=== PATIENT | female | born 1985 | race Caucasian/White ===

== ENCOUNTER 2019-01-20 15:21 | Emergency (ER) | payer OTHER ==
[2019-01-20 15:27] VITALS: BP 114/55; PULSE 90; RESP 18; TEMP 98.1
[2019-01-20] MEDS ORDERED: PHENAZOPYRIDINE 200 MG TAB PO STA (15:36)
--- NOTE | 2019-01-20 15:39 | ED ---
Abdominal Pain HPI - General Chief Complaint: Abdominal Pain Stated Complaint: Poss UTI Time Seen by Provider: 01/20/19 15:28 Source: patient Mode of arrival: ambulatory Limitations: no limitations - History of Present Illness Initial Comments: 33-year-old female patient presents to the emergency department today for evaluation for possible urinary tract infection. Patient states for the last week she's been experiencing urinary frequency, urinary urgency, and for the last 2 days dysuria. Patient states she is also experiencing some low back pain today. She denies any fever or chills. Denies nausea or vomiting. Denies any abnormal vaginal bleeding or discharge. Patient denies history of urinary tract infection. Patient denies any recent rash, shortness breath, chest pain, diarrhea, constipation, back pain, numbness, tingling, dizziness, weakness, headache, visual changes, or any other complaints. - Related Data Previous Rx's Medication Instructions Recorded Hydrocodone/Acetaminophen [[place] 1 tab PO Q6HR PRN #20 tab 04/09/15 5-325] Ibuprofen [Motrin] 600 mg PO Q8HR PRN #20 tab 04/09/15 Ondansetron Odt [Zofran Odt] 4 mg PO Q8HR PRN #10 tab 04/09/15 Tamsulosin [Flomax] 0.4 mg PO DAILY #7 cap 04/09/15 Cephalexin [Keflex] 500 mg PO Q6HR #40 cap 01/20/19 Fluconazole [Diflucan] 150 mg PO ONCE #2 tab 01/20/19 Phenazopyridine [Pyridium] 200 mg PO TID #18 tablet 01/20/19 Allergies Allergy/AdvReac Type Severity Reaction Status Date / Time No Known Allergies Allergy Verified 01/20/19 15:27 Review of Systems ROS Statement: Those systems with pertinent positive or pertinent negative responses have been documented in the HPI. ROS Other: All systems not noted in ROS Statement are negative. Past Medical History Past Medical History: No Reported History Additional Past Medical History / Comment(s): kidney stones History of Any Multi-Drug Resistant Organisms: None Reported Past Surgical History: No Surgical Hx Reported Past Psychological History: No Psychological Hx Reported Smoking Status: Never smoker Past Alcohol Use History: None Reported Past Drug Use History: None Reported General Exam Limitations: no limitations General appearance: alert, in no apparent distress, other (Physical well- developed, well-nourished adult female patient in no acute distress. Vital signs upon presentation are temperature 98.1F, pulse 90, respirations 18, blood pressure 114/55, pulse ox 99% on room air.) Eye exam: Present: normal appearance, PERRL, EOMI. Absent: scleral icterus, conjunctival injection, periorbital swelling ENT exam: Present: normal exam, normal oropharynx, mucous membranes moist Respiratory exam: Present: normal lung sounds bilaterally. Absent: respiratory distress, wheezes, rales, rhonchi, stridor Cardiovascular Exam: Present: regular rate, normal rhythm, normal heart sounds. Absent: systolic murmur, diastolic murmur, rubs, gallop, clicks GI/Abdominal exam: Present: soft, normal bowel sounds. Absent: distended, tenderness, guarding, rebound, rigid Back exam: Present: normal inspection. Absent: CVA tenderness (R), CVA tenderness (L) Neurological exam: Present: alert, oriented X3, CN II-XII intact Psychiatric exam: Present: normal affect, normal mood Skin exam: Present: warm, dry, intact, normal color. Absent: rash Course Vital Signs 01/20/19 15:25 Temperature 98.1 F Pulse Rate 90 Respiratory 18 Rate Blood Pressure 114/55 O2 Sat by Pulse 99 Oximetry Medical Decision Making - Medical Decision Making 33-year-old female patient presents to the emergency department today for evaluation of low back pain, dysuria, urinary frequency, and urinary urgency. Urinalysis was performed, shows evidence for urinary tract infection. We'll start Keflex and give pyridium She did request a prescription for Diflucan. S he'll be discharged to follow-up with her primary care physician for recheck in 1-2 days. Return parameters were discussed in detail. She verbalizes understanding and agrees this plan. - Lab Data Lab Results 01/20/19 Range/Units 15:45 Urine Color Yellow Urine Appearance Cloudy H (Clear) Urine pH 5.5 (5.0-8.0) Ur Specific [place] 1.022 (1.001-1.035) Urine Protein 1+ H (Negative) Urine Glucose (UA) Negative (Negative) Urine Ketones Negative (Negative) Urine Blood Small H (Negative) Urine Nitrite Positive H (Negative) Urine Bilirubin Negative (Negative) Urine Urobilinogen <2.0 (<2.0) mg/dL Ur Leukocyte Esterase Large H (Negative) Urine WBC >182 H (0-5) /hpf Urine WBC Clumps Many H (None) /hpf Ur Squamous Epith Cells 5 H (0-4) /hpf Urine Bacteria Occasional H (None) /hpf Urine Mucus Rare H (None) /hpf Disposition Clinical Impression: Urinary tract infection Disposition: HOME SELF-CARE Condition: Good Instructions (If sedation given, give patient instructions): Urinary Tract Infection in Women (ED) Additional Instructions: Increase fluids. Complete antibiotic prescription in full. Take other medications as directed. Follow-up with your primary care physician for recheck in 1-2 days. Return to the emergency department immediately for any new, worsening, or concerning symptoms. Prescriptions: Fluconazole [Diflucan] 150 mg PO ONCE #2 tab Cephalexin [Keflex] 500 mg PO Q6HR #40 cap Phenazopyridine [Pyridium] 200 mg PO TID #18 tablet Is patient prescribed a controlled substance at d/c from ED?: No Referrals: None,Stated [Primary Care Provider] - 1-2 days Time of Disposition: 16:42
[2019-01-20 16:14] LABS: Appearance,Urine Cloudy (Clear); Bacteria,Urine Occasional /hpf; Bilirubin,Urine Negative (Negative); Blood,Urine Small (Negative); Color,Urine Yellow; Glucose,Urine (UA) Negative (Negative); Ketones,Urine Negative (Negative); Leukocyte Esterase,Urine Large (Negative); Mucus,Urine Rare /hpf; Nitrite,Urine Positive (Negative); PH, Urine 5.5 (5.0-8.0); Protein,Urine 1+ (Negative); Specific Gravity,Urine 1.022 (1.001-1.035); Squamous Epithelial Cell,Urine 5 /hpf (0-4); Urobilinogen,Urine <2.0 mg/dL (<2.0)
[2019-01-20] MEDS ORDERED: CEPHALEXIN 500MG STARTER PACK 4 CAP BTL PO STA (16:23)
== END 2019-01-20 16:50 | disposition home or self-care (01) ==
LOC: EC 15:21
DX: N39.0 Urinary tract infection, site not specified (principal); Z87.442 Personal history of urinary calculi
CPT/HCPCS: 81001; 87077; 87086; 87186; 99284

== ENCOUNTER 2019-01-30 11:03 | Emergency (ER) | payer SELFPAY ==
[2019-01-30 12:02] LABS: Appearance,Urine Clear (Clear); Bacteria,Urine Rare /hpf; Bilirubin,Urine Negative (Negative); Blood,Urine Moderate (Negative); Color,Urine Yellow; Glucose,Urine (UA) Negative (Negative); Ketones,Urine Negative (Negative); Leukocyte Esterase,Urine Large (Negative); Mucus,Urine Rare /hpf; Nitrite,Urine Negative (Negative); PH, Urine 5.5 (5.0-8.0); Protein,Urine Negative (Negative); RBC,Urine 59 /hpf (0-5); Specific Gravity,Urine 1.015 (1.001-1.035); Squamous Epithelial Cell,Urine 5 /hpf (0-4); Urobilinogen,Urine <2.0 mg/dL (<2.0); WBC,Urine 22 /hpf (0-5)
[2019-01-30] MEDS ORDERED: SODIUM CHLORIDE 0.9% 1,000 ML IV STA (12:04)
[2019-01-30] MEDS ORDERED: KETOROLAC 30 MG/ML 1 ML VIAL IVP STA (12:04)
[2019-01-30 12:45] LABS: Basophils % (A) 0 %; Eosinophils # (A) 0.3 k/uL (0-0.7); Eosinophils % (A) 4 %; HCT 35.8 % (34.0-46.0); HGB 12.2 gm/dL (11.4-16.0); Lymphocytes # (A) 2.3 k/uL (1.0-4.8); Lymphocytes % (A) 29 %; MCH 31.6 pg (25.0-35.0); MCHC 34.1 g/dL (31.0-37.0); MCV 92.6 fL (80.0-100.0); Mean Platelet Volume 6.1; Monocytes # (A) 0.4 k/uL (0-1.0); Monocytes % (A) 5 %; Neutrophils # (A) 4.8 k/uL (1.3-7.7); Neutrophils % (A) 60 %; Platelet Count 265 k/uL (150-450); RBC 3.87 m/uL (3.80-5.40); RDW 12.1 % (11.5-15.5)
[2019-01-30 12:51] LABS: ALT 27 U/L (9-52); AST 16 U/L (14-36); African American GFR (CKD) >90 (>60 ml/min/1.73 sqM); Alkaline Phosphatase 41 U/L (38-126); Amylase 58 U/L (30-110); Anion Gap 9 mmol/L; Blood Urea Nitrogen 14 mg/dL (7-17); Calcium 9.2 mg/dL (8.4-10.2); Carbon Dioxide 26 mmol/L (22-30); Chloride 107 mmol/L (98-107); Glucose 103 mg/dL (74-99); Potassium 4.2 mmol/L (3.5-5.1); Sodium 142 mmol/L (137-145); Total Bilirubin 0.4 mg/dL (0.2-1.3); Total Protein 6.9 g/dL (6.3-8.2)
--- NOTE | 2019-01-30 13:26 | CT ---
EXAMINATION TYPE: CT abdomen pelvis wo con DATE OF EXAM: 01/30/2019 COMPARISON: Previous study dated 02/22/2015. HISTORY: Rt flank pain CT DLP: 877.4 mGycm Automated exposure control for dose reduction was used. FINDINGS: Visualized portions of the lungs are clear. There is no pleural or pericardial fluid. The h eart is not enlarged. Within the abdomen, the liver is mildly prominent measuring 19 cm. The spleen and gallbladder are nor mal. Both adrenal glands are normal. Left kidney normal. There is moderate right-sided hydronephrosis and hydroureter to the level of the midpelvis where ther e is a 5.3 mm calculus. There is an IUCD within the uterus. The ovaries are unremarkable. There is no significant diverticular change and there is no radiographic evidence of diverticulitis. The appendix is normal. Small bowel loops are normal. There is no free fluid and no free air. IMPRESSION: 1. RIGHT-SIDED HYDRONEPHROSIS AND HYDROURETER WITH 5.3 MM CALCULUS JUST PROXIMAL TO THE UVJ. 2. MILD HEPATOMEGALY.
[2019-01-30] MEDS ORDERED: HYDROmorphone 0.5 MG/0.5 ML SYRINGE IVP STA (14:12)
[2019-01-30] MEDS ORDERED: ACET/COD 300 MG/30 MG STARTER PACK 6 TAB BTL PO STA (14:12)
--- NOTE | 2019-01-30 14:13 | ED ---
General Adult HPI - General Chief complaint: Back Pain/Injury Stated complaint: lower back pain Time Seen by Provider: 01/30/19 11:21 Source: patient, RN notes reviewed Mode of arrival: ambulatory Limitations: no limitations - History of Present Illness Initial comments: 33-year-old female with a past medical history of kidney stones presents to the emergency department for right low back pain. Patient states that about a week ago she was diagnosed with a urinary tract infection. States that she started antibiotics and the burning and dysuria has resolved. However she still is a nagging pain at a 4 out of 10 in the right side of her low back. No nausea vomiting. No fevers. Patient is tolerating oral intake.Patient has no other complaints at this time including shortness of breath, chest pain, abdominal pain, nausea or vomiting, headache, or visual changes. - Related Data Previous Rx's Medication Instructions Recorded Hydrocodone/Acetaminophen [[place] 1 tab PO Q6HR PRN #20 tab 04/09/15 5-325] Ibuprofen [Motrin] 600 mg PO Q8HR PRN #20 tab 04/09/15 Ondansetron Odt [Zofran Odt] 4 mg PO Q8HR PRN #10 tab 04/09/15 Tamsulosin [Flomax] 0.4 mg PO DAILY #7 cap 04/09/15 Cephalexin [Keflex] 500 mg PO Q6HR #40 cap 01/20/19 Fluconazole [Diflucan] 150 mg PO ONCE #2 tab 01/20/19 Phenazopyridine [Pyridium] 200 mg PO TID #18 tablet 01/20/19 Ibuprofen [Motrin] 600 mg PO Q8HR PRN #20 tab 01/30/19 Tamsulosin [Flomax] 0.4 mg PO DAILY #14 cap 01/30/19 Allergies Allergy/AdvReac Type Severity Reaction Status Date / Time No Known Allergies Allergy Verified 01/30/19 11:19 Review of Systems ROS Statement: Those systems with pertinent positive or pertinent negative responses have been documented in the HPI. ROS Other: All systems not noted in ROS Statement are negative. Past Medical History Past Medical History: No Reported History Additional Past Medical History / Comment(s): kidney stones History of Any Multi-Drug Resistant Organisms: None Reported Past Surgical History: No Surgical Hx Reported Past Psychological History: No Psychological Hx Reported Smoking Status: Never smoker Past Alcohol Use History: Occasional Past Drug Use History: None Reported General Exam Limitations: no limitations General appearance: alert, in no apparent distress Head exam: Present: atraumatic, normocephalic, normal inspection Eye exam: Present: normal appearance, PERRL, EOMI. Absent: scleral icterus, conjunctival injection, periorbital swelling ENT exam: Present: normal exam, mucous membranes moist Neck exam: Present: normal inspection, full ROM. Absent: tenderness, meningismus, lymphadenopathy Respiratory exam: Present: normal lung sounds bilaterally. Absent: respiratory distress, wheezes, rales, rhonchi, stridor Cardiovascular Exam: Present: regular rate, normal rhythm, normal heart sounds. Absent: systolic murmur, diastolic murmur, rubs, gallop, clicks GI/Abdominal exam: Present: soft, normal bowel sounds. Absent: distended, tenderness, guarding, rebound, rigid Back exam: Absent: CVA tenderness (R), CVA tenderness (L) Course Vital Signs 01/30/19 01/30/19 11:15 12:23 Temperature 98.0 F 98.7 F Pulse Rate 73 66 Respiratory 16 16 Rate Blood Pressure 118/66 123/74 O2 Sat by Pulse 99 100 Oximetry Medical Decision Making - Medical Decision Making HPI physical exam as documented. Vitals are stable. Patient is afebrile. Urinalysis did show 22 white blood cells with 59 red blood cells. Culture was reordered. CT abdomen and pelvis shows a right-sided hydronephrosis and hydroureter with a 5.3 mm calculus just proximal to the UVJ. This is likely why patient is still having right low back pain. UTI has improved the patient will continue her Keflex as she has a few days left. Previous culture was sensitive to Keflex. Discussed with patient that this may not pass on its own and she should follow up with urology by calling on Thursday for an appointment. Patient will be started on Flomax as well. She is nontoxic and well-appearing.I discu ssed this case with attending Dr. Hurtado who agrees with this assessment and treatment plan. - Lab Data Result diagrams: 01/30/19 12:22 01/30/19 12:22 Lab Results 01/30/19 01/30/19 01/30/19 Range/Units 11:30 11:30 12:22 WBC (3.8-10.6) k/uL RBC (3.80-5.40) m/uL Hgb (11.4-16.0) gm/dL Hct (34.0-46.0) % MCV (80.0-100.0) fL MCH (25.0-35.0) pg MCHC (31.0-37.0) g/dL RDW (11.5-15.5) % Plt Count (150-450) k/uL Neutrophils % % Lymphocytes % % Monocytes % % Eosinophils % % Basophils % % Neutrophils # (1.3-7.7) k/uL Lymphocytes # (1.0-4.8) k/uL Monocytes # (0-1.0) k/uL Eosinophils # (0-0.7) k/uL Basophils # (0-0.2) k/uL Sodium 142 (137-145) mmol/L Potassium 4.2 (3.5-5.1) mmol/L Chloride 107 (98-107) mmol/L Carbon Dioxide 26 (22-30) mmol/L Anion Gap 9 mmol/L BUN 14 (7-17) mg/dL Creatinine 0.77 (0.52-1.04) mg/dL Est GFR (CKD-EPI)AfAm >90 (>60 ml/min/1.73 sqM) Est GFR (CKD-EPI)NonAf >90 (>60 ml/min/1.73 sqM) Glucose 103 H (74-99) mg/dL Calcium 9.2 (8.4-10.2) mg/dL Total Bilirubin 0.4 (0.2-1.3) mg/dL AST 16 (14-36) U/L ALT 27 (9-52) U/L Alkaline Phosphatase 41 (38-126) U/L Total Protein 6.9 (6.3-8.2) g/dL Albumin 4.0 (3.5-5.0) g/dL Amylase 58 (30-110) U/L Lipase 136 (23-300) U/L Urine Color Yellow Urine Appearance Clear (Clear) Urine pH 5.5 (5.0-8.0) Ur Specific [place] 1.015 (1.001-1.035) Urine Protein Negative (Negative) Urine Glucose (UA) Negative (Negative) Urine Ketones Negative (Negative) Urine Blood Moderate H (Negative) Urine Nitrite Negative (Negative) Urine Bilirubin Negative (Negative) Urine Urobilinogen <2.0 (<2.0) mg/dL Ur Leukocyte Esterase Large H (Negative) Urine RBC 59 H (0-5) /hpf Urine WBC 22 H (0-5) /hpf Ur Squamous Epith Cells 5 H (0-4) /hpf Urine Bacteria Rare H (None) /hpf Urine Mucus Rare H (None) /hpf Urine HCG, Qual Not Detected (Not Detectd) 01/30/19 Range/Units 12:22 WBC 8.0 (3.8-10.6) k/uL RBC 3.87 (3.80-5.40) m/uL Hgb 12.2 (11.4-16.0) gm/dL Hct 35.8 (34.0-46.0) % MCV 92.6 (80.0-100.0) fL MCH 31.6 (25.0-35.0) pg MCHC 34.1 (31.0-37.0) g/dL RDW 12.1 (11.5-15.5) % Plt Count 265 (150-450) k/uL Neutrophils % 60 % Lymphocytes % 29 % Monocytes % 5 % Eosinophils % 4 % Basophils % 0 % Neutrophils # 4.8 (1.3-7.7) k/uL Lymphocytes # 2.3 (1.0-4.8) k/uL Monocytes # 0.4 (0-1.0) k/uL Eosinophils # 0.3 (0-0.7) k/uL Basophils # 0.0 (0-0.2) k/uL Sodium (137-145) mmol/L Potassium (3.5-5.1) mmol/L Chloride (98-107) mmol/L Carbon Dioxide (22-30) mmol/L Anion Gap mmol/L BUN (7-17) mg/dL Creatinine (0.52-1.04) mg/dL Est GFR (CKD-EPI)AfAm (>60 ml/min/1.73 sqM) Est GFR (CKD-EPI)NonAf (>60 ml/min/1.73 sqM) Glucose (74-99) mg/dL Calcium (8.4-10.2) mg/dL Total Bilirubin (0.2-1.3) mg/dL AST (14-36) U/L ALT (9-52) U/L Alkaline Phosphatase (38-126) U/L Total Protein (6.3-8.2) g/dL Albumin (3.5-5.0) g/dL Amylase (30-110) U/L Lipase (23-300) U/L Urine Color Urine Appearance (Clear) Urine pH (5.0-8.0) Ur Specific [place] (1.001-1.035) Urine Protein (Negative) Urine Glucose (UA) (Negative) Urine Ketones (Negative) Urine Blood (Negative) Urine Nitrite (Negative) Urine Bilirubin (Negative) Urine Urobilinogen (<2.0) mg/dL Ur Leukocyte Esterase (Negative) Urine RBC (0-5) /hpf Urine WBC (0-5) /hpf Ur Squamous Epith Cells (0-4) /hpf Urine Bacteria (None) /hpf Urine Mucus (None) /hpf Urine HCG, Qual (Not Detectd) Disposition Clinical Impression: Urinary tract infection, Ureterolithiasis Disposition: HOME SELF-CARE Condition: Good Instructions (If sedation given, give patient instructions): Kidney Stones (ED), Urinary Tract Infection in Women (ED) Additional Instructions: Please continue to take Keflex. Take Flomax daily. This was prescribed to fredi pulido on . Take Motrin for pain. If pain is severe take Tylenol 3. Follow up with urology by calling tomorrow for an appointment. Return to the emergency department if you have any worsening symptoms or fevers. Prescriptions: Tamsulosin [Flomax] 0.4 mg PO DAILY #14 cap Ibuprofen [Motrin] 600 mg PO Q8HR PRN #20 tab PRN Reason: Pain Is patient prescribed a controlled substance at d/c from ED?: No Referrals: Austin Flores MD [Primary Care Provider] - 1-2 days Ladarius Bryant MD [STAFF PHYSICIAN] - 1-2 days Time of Disposition: 14:10
[2019-01-30 14:28] VITALS: BP 130/66; PULSE 71; RESP 18; TEMP 97.2
== END 2019-01-30 14:27 | disposition home or self-care (01) ==
LOC: EC 11:03
DX: N13.6 Pyonephrosis (principal); N20.1 Calculus of ureter
CPT/HCPCS: 36415; 80053; 82150; 83690; 85025; 81001; 81025; 87086; 74176; 99284; 96374; 96375; 96361; J1885; J1170

== ENCOUNTER 2019-02-06 11:17 | Inpatient (IN) | payer OTHER ==
[2019-02-06] MEDS ORDERED: SODIUM CHLORIDE 0.9% 2,000 ML IV STA (11:42)
--- NOTE | 2019-02-06 11:48 | ED ---
Nausea/Vomiting/Diarrhea HPI - General Chief complaint: Nausea/Vomiting/Diarrhea Stated complaint: Kidney Infection Time Seen by Provider: 02/06/19 11:30 Source: patient, RN notes reviewed Mode of arrival: ambulatory Limitations: no limitations - History of Present Illness Initial comments: 33-year-old female presents emergency Department chief complaint of fever, chills, back pain. Patient states that she seen here approximately 3 weeks ago for UTI was treated states that symptoms improved but the pain never went away and she presented again was found to have a 5.3 mm UVJ stone on the right. Patient states that she does not believe she is passing she states that she does have a history kidney stones. Patient states over the last few days she's had worsening symptoms in which she's had back pain she's had either shaking chills or hot flashes. She does admit to some ongoing nausea vomiting but states that those symptoms have improved currently. She states her urine is odorous and cloudy at this time. Patient denies any chest pain or shortness breath patient states that really makes the pain feel better or worse. - Related Data Previous Rx's Medication Instructions Recorded Hydrocodone/Acetaminophen [[place] 1 tab PO Q6HR PRN #20 tab 04/09/15 5-325] Ibuprofen [Motrin] 600 mg PO Q8HR PRN #20 tab 04/09/15 Ondansetron Odt [Zofran Odt] 4 mg PO Q8HR PRN #10 tab 04/09/15 Tamsulosin [Flomax] 0.4 mg PO DAILY #7 cap 04/09/15 Cephalexin [Keflex] 500 mg PO Q6HR #40 cap 01/20/19 Fluconazole [Diflucan] 150 mg PO ONCE #2 tab 01/20/19 Phenazopyridine [Pyridium] 200 mg PO TID #18 tablet 01/20/19 Ibuprofen [Motrin] 600 mg PO Q8HR PRN #20 tab 01/30/19 Tamsulosin [Flomax] 0.4 mg PO DAILY #14 cap 01/30/19 Allergies Allergy/AdvReac Type Severity Reaction Status Date / Time No Known Allergies Allergy Verified 02/06/19 11:22 Review of Systems ROS Statement: Those systems with pertinent positive or pertinent negative responses have been documented in the HPI. ROS Other: All systems not noted in ROS Statement are negative. Past Medical History Past Medical History: No Reported History Additional Past Medical History / Comment(s): kidney stones, uti History of Any Multi-Drug Resistant Organisms: None Reported Past Surgical History: No Surgical Hx Reported Past Psychological History: No Psychological Hx Reported Smoking Status: Never smoker Past Alcohol Use History: Occasional Past Drug Use History: None Reported General Exam Limitations: no limitations General appearance: alert, in no apparent distress Head exam: Present: atraumatic, normocephalic, normal inspection Eye exam: Present: normal appearance, PERRL, EOMI. Absent: scleral icterus, conjunctival injection, periorbital swelling Neck exam: Present: normal inspection, full ROM. Absent: tenderness, meningismus, lymphadenopathy Respiratory exam: Present: normal lung sounds bilaterally. Absent: respiratory distress, wheezes, rales, rhonchi, stridor Cardiovascular Exam: Present: regular rate, normal rhythm, normal heart sounds. Absent: systolic murmur, diastolic murmur, rubs, gallop, clicks GI/Abdominal exam: Present: soft, normal bowel sounds. Absent: distended, tenderness, guarding, rebound, rigid Back exam: Present: full ROM, tenderness, CVA tenderness (R), paraspinal tenderness. Absent: CVA tenderness (L) Neurological exam: Present: alert, oriented X3, CN II-XII intact, reflexes normal. Absent: motor sensory deficit Course Vital Signs 02/06/19 02/06/19 02/06/19 11:19 12:06 13:13 Temperature 98.5 F Pulse Rate 96 91 79 Respiratory 18 18 18 Rate Blood Pressure 106/63 102/58 104/26 O2 Sat by Pulse 98 99 97 Oximetry 02/06/19 13:50 Temperature Pulse Rate 89 Respiratory 18 Rate Blood Pressure 110/65 O2 Sat by Pulse 99 Oximetry Medical Decision Making - Medical Decision Making CT shows evidence of UVJ 5.3 mm stone which is unchanged from prior patient has evidence of urinary tract infection concern for septic stone. Patient will be admitted for IV antibiotics, procedure from urology. Case discussed with urologist economics consultant - Lab Data Result diagrams: 02/06/19 12:09 02/06/19 12:09 Lab Results 02/06/19 02/06/19 02/06/19 Range/Units 12:09 12:09 12:09 WBC 9.5 (3.8-10.6) k/uL RBC 3.74 L (3.80-5.40) m/uL Hgb 11.8 (11.4-16.0) gm/dL Hct 34.0 (34.0-46.0) % MCV 90.9 (80.0-100.0) fL MCH 31.4 (25.0-35.0) pg MCHC 34.6 (31.0-37.0) g/dL RDW 11.9 (11.5-15.5) % Plt Count 258 (150-450) k/uL Neutrophils % 74 % Lymphocytes % 15 % Monocytes % 7 % Eosinophils % 1 % Basophils % 1 % Neutrophils # 7.1 (1.3-7.7) k/uL Lymphocytes # 1.4 (1.0-4.8) k/uL Monocytes # 0.6 (0-1.0) k/uL Eosinophils # 0.1 (0-0.7) k/uL Basophils # 0.1 (0-0.2) k/uL Sodium 136 L (137-145) mmol/L Potassium 3.7 (3.5-5.1) mmol/L Chloride 101 (98-107) mmol/L Carbon Dioxide 22 (22-30) mmol/L Anion Gap 13 mmol/L BUN 12 (7-17) mg/dL Creatinine 0.87 (0.52-1.04) mg/dL Est GFR (CKD-EPI)AfAm >90 (>60 ml/min/1.73 sqM) Est GFR (CKD-EPI)NonAf 87 (>60 ml/min/1.73 sqM) Glucose 93 (74-99) mg/dL Plasma Lactic Acid Daniel (0.7-2.0) mmol/L Calcium 9.0 (8.4-10.2) mg/dL Total Bilirubin 0.6 (0.2-1.3) mg/dL AST 19 (14-36) U/L ALT 31 (9-52) U/L Alkaline Phosphatase 53 (38-126) U/L Total Protein 7.1 (6.3-8.2) g/dL Albumin 4.0 (3.5-5.0) g/dL Amylase 40 (30-110) U/L Lipase 88 (23-300) U/L Urine Color Urine Appearance (Clear) Urine pH (5.0-8.0) Ur Specific [place] (1.001-1.035) Urine Protein (Negative) Urine Glucose (UA) (Negative) Urine Ketones (Negative) Urine Blood (Negative) Urine Nitrite (Negative) Urine Bilirubin (Negative) Urine Urobilinogen (<2.0) mg/dL Ur Leukocyte Esterase (Negative) Urine RBC (0-5) /hpf Urine WBC (0-5) /hpf Urine WBC Clumps (None) /hpf Ur Squamous Epith Cells (0-4) /hpf Urine HCG, Qual Not Detected (Not Detectd) 02/06/19 02/06/19 Range/Units 12:09 12:09 WBC (3.8-10.6) k/uL RBC (3.80-5.40) m/uL Hgb (11.4-16.0) gm/dL Hct (34.0-46.0) % MCV (80.0-100.0) fL MCH (25.0-35.0) pg MCHC (31.0-37.0) g/dL RDW (11.5-15.5) % Plt Count (150-450) k/uL Neutrophils % % Lymphocytes % % Monocytes % % Eosinophils % % Basophils % % Neutrophils # (1.3-7.7) k/uL Lymphocytes # (1.0-4.8) k/uL Monocytes # (0-1.0) k/uL Eosinophils # (0-0.7) k/uL Basophils # (0-0.2) k/uL Sodium (137-145) mmol/L Potassium (3.5-5.1) mmol/L Chloride (98-107) mmol/L Carbon Dioxide (22-30) mmol/L Anion Gap mmol/L BUN (7-17) mg/dL Creatinine (0.52-1.04) mg/dL Est GFR (CKD-EPI)AfAm (>60 ml/min/1.73 sqM) Est GFR (CKD-EPI)NonAf (>60 ml/min/1.73 sqM) Glucose (74-99) mg/dL Plasma Lactic Acid Daniel 0.8 (0.7-2.0) mmol/L Calcium (8.4-10.2) mg/dL Total Bilirubin (0.2-1.3) mg/dL AST (14-36) U/L ALT (9-52) U/L Alkaline Phosphatase (38-126) U/L Total Protein (6.3-8.2) g/dL Albumin (3.5-5.0) g/dL Amylase (30-110) U/L Lipase (23-300) U/L Urine Color Yellow Urine Appearance Turbid H (Clear) Urine pH 6.0 (5.0-8.0) Ur Specific [place] 1.017 (1.001-1.035) Urine Protein 2+ H (Negative) Urine Glucose (UA) Negative (Negative) Urine Ketones 2+ H (Negative) Urine Blood Small H (Negative) Urine Nitrite Positive H (Negative) Urine Bilirubin Negative (Negative) Urine Urobilinogen <2.0 (<2.0) mg/dL Ur Leukocyte Esterase Large H (Negative) Urine RBC 14 H (0-5) /hpf Urine WBC >182 H (0-5) /hpf Urine WBC Clumps Many H (None) /hpf Ur Squamous Epith Cells 9 H (0-4) /hpf Urine HCG, Qual (Not Detectd) Disposition Clinical Impression: Ureterolithiasis, Urinary tract infection Narrative: septic stone Disposition: ADMITTED IP TO THIS HOSP Condition: Fair Referrals: Austin Flores MD [Primary Care Provider] - 1-2 days
[2019-02-06 12:17] LABS: Basophils # (A) 0.1 k/uL (0-0.2); Basophils % (A) 1 %; Eosinophils # (A) 0.1 k/uL (0-0.7); Eosinophils % (A) 1 %; HGB 11.8 gm/dL (11.4-16.0); Lymphocytes # (A) 1.4 k/uL (1.0-4.8); Lymphocytes % (A) 15 %; MCH 31.4 pg (25.0-35.0); MCHC 34.6 g/dL (31.0-37.0); MCV 90.9 fL (80.0-100.0); Mean Platelet Volume 5.6; Monocytes # (A) 0.6 k/uL (0-1.0); Monocytes % (A) 7 %; Neutrophils # (A) 7.1 k/uL (1.3-7.7); Neutrophils % (A) 74 %; Platelet Count 258 k/uL (150-450); RBC 3.74 m/uL (3.80-5.40); RDW 11.9 % (11.5-15.5); WBC 9.5 k/uL (3.8-10.6)
[2019-02-06 12:30] LABS: ALT 31 U/L (9-52); AST 19 U/L (14-36); African American GFR (CKD) >90 (>60 ml/min/1.73 sqM); Alkaline Phosphatase 53 U/L (38-126); Amylase 40 U/L (30-110); Anion Gap 13 mmol/L; Blood Urea Nitrogen 12 mg/dL (7-17); Carbon Dioxide 22 mmol/L (22-30); Chloride 101 mmol/L (98-107); Glucose 93 mg/dL (74-99); Potassium 3.7 mmol/L (3.5-5.1); Sodium 136 mmol/L (137-145); Total Bilirubin 0.6 mg/dL (0.2-1.3); Total Protein 7.1 g/dL (6.3-8.2)
[2019-02-06 12:37] LABS: Appearance,Urine Turbid (Clear); Bilirubin,Urine Negative (Negative); Blood,Urine Small (Negative); Color,Urine Yellow; Glucose,Urine (UA) Negative (Negative); Ketones,Urine 2+ (Negative); Leukocyte Esterase,Urine Large (Negative); Nitrite,Urine Positive (Negative); Protein,Urine 2+ (Negative); RBC,Urine 14 /hpf (0-5); Specific Gravity,Urine 1.017 (1.001-1.035); Squamous Epithelial Cell,Urine 9 /hpf (0-4); Urobilinogen,Urine <2.0 mg/dL (<2.0)
[2019-02-06] MEDS ORDERED: cefTRIAXone IN SWFI 1,000 MG/10 ML SYRINGE IVP STA (12:51)
--- NOTE | 2019-02-06 13:14 | XR ---
EXAMINATION TYPE: XR KUB , 2 VIEWS DATE OF EXAM ORDERED: 02/06/2019 HISTORY: right flank pain. COMPARISON: Previous study dated 04/09/2015. FINDINGS: Known bases are clear. Within the abdomen, the abdominal gas pattern is normal. There is no evidence of obstruction or free air. There is a IUCD present in the pelvis. No definite abnormal calcifications are seen. IMPRESSION: NONACUTE ABDOMINAL PICTURE.
[2019-02-06] MEDS ORDERED: ONDANSETRON 4 MG/2 ML VIAL IVP STA (13:35)
[2019-02-06] MEDS ORDERED: KETOROLAC 30 MG/ML 1 ML VIAL IVP STA (13:35)
--- NOTE | 2019-02-06 14:37 | CT ---
EXAMINATION TYPE: CT abdomen pelvis wo con DATE OF EXAM: 02/06/2019 COMPARISON: Previous study dated 01/30/2019. HISTORY: Right sided flank pain. CT DLP: 922.1 mGycm Automated exposure control for dose reduction was used. FINDINGS: There continues to be a large amount of hydronephrosis on the right and hydroureter to the level of the uterus where 5.3 mm calculus remains in place, unchanged in appearance. There is increas ed stranding around the right kidney. There is no evidence of hydronephrosis on the left. The bladder is unremarkable. There is minimal atelectasis at the lung bases. There is no pleural or pericardial fluid. The heart i s not enlarged. Within the abdomen, the liver is prominent measuring 19 6 cm. This may be largely due to a Laquita's l obe. The spleen and gallbladder are normal. Both adrenal glands are normal. Limited views of the pancreas are normal. There is no significant retroperitoneal adenopathy. There is a IUCD present within the uterus. The ovaries appear normal. Both the large and small bowel appear normal. The appendix is normal. There is no free fluid and no free air. IMPRESSION: CONTINUING MODERATE TO SEVERE HYDRONEPHROSIS ON THE RIGHT WITH A PERSISTENT 5.3 MM CALCULUS JUST PROX IMAL TO THE RIGHT UVJ. THERE IS INCREASED STRANDING ABOUT THE RIGHT KIDNEY.
[2019-02-06] MEDS ORDERED: HYDROmorphone 1 MG/ML 1 ML SYRINGE IVP PRN (15:19)
[2019-02-06] MEDS ORDERED: ONDANSETRON 4 MG/2 ML VIAL IVP PRN (15:19)
[2019-02-06] MEDS ORDERED: NALOXONE 0.4 MG/ML 1 ML VIAL IV PRN (15:19)
[2019-02-06] MEDS ORDERED: HYDROmorphone 0.5 MG/0.5 ML SYRINGE IVP PRN (15:19)
[2019-02-06 16:48] VITALS: BMI 35.9
[2019-02-06] MEDS: SODIUM CHLORIDE 0.9% 1,000 ML IV SCH (18:10)
[2019-02-06] MEDS: HYDROcodone/APAP 5-325MG 1 EACH TAB PO PRN (20:33)
[2019-02-07] MEDS: HYDROcodone/APAP 5-325MG 1 EACH TAB PO PRN ×3 (03:08→21:02)
[2019-02-07] MEDS: SODIUM CHLORIDE 0.9% 1,000 ML IV SCH (04:30)
--- NOTE | 2019-02-07 13:04 | P.GSCN ---
History of Present Illness Consult date: 02/07/19 Reason for Consult: right flank pain History of present illness: Ms. Collins is a 33-year-old female presents emergency Department chief complaint of fever, chills, flank pain. She was recently evaluated for a right sided ureteral stone. On presentation to the ED she underwent a CT scan showed a 5.3 mm stones at the UVJ on the right side. She was hemodynamically stable on presentation. Indicated she's been having dysuria bladder pressure with chills prior to presenting to the ED. She also does admit to some ongoing nausea vomiting . Review of Systems - Constitutional Reports chills, Reports fatigue, Reports fever - EENT Ears, nose, mouth and throat: Reports headache, Denies dysphagia - Cardiovascular Denies chest pain, Denies leg edema - Respiratory Denies congestion, Denies cough, Denies dyspnea - Gastrointestinal Reports abdominal pain, Reports change in bowel habits, Reports diarrhea, Reports nausea, Reports vomiting - Genitourinary Genitourinary: Reports dysuria, Reports flank pain, Denies hematuria - Neurological Reports weakness, Denies confusion - Psychiatric Denies anxiety, Denies depression - Endocrine Denies palpitations, Denies weight change Past Medical History Past Medical History: No Reported History Additional Past Medical History / Comment(s): kidney stones, uti History of Any Multi-Drug Resistant Organisms: None Reported Past Surgical History: No Surgical Hx Reported Smoking Status: Never smoker - Past Family History Mother Additional Family Medical History / Comment(s): low blood pressure Medications and Allergies Home Medications Medication Instructions Recorded Confirmed Type Ibuprofen [Motrin Ib] 400 mg PO Q6H PRN 02/06/19 02/06/19 History Allergies Allergy/AdvReac Type Severity Reaction Status Date / Time No Known Allergies Allergy Verified 02/06/19 16:07 Surgical - Exam Vital Signs Temp Pulse Resp BP Pulse Ox 98.5 F 96 18 106/63 98 02/06/19 11:19 02/06/19 11:19 02/06/19 11:02/06/19 11:02/06/19 11:19 - General well developed, well nourished, no distress, moderate pain - ENT normal mucosa, no hearing loss - Respiratory normal expansion, normal respiratory effort - Abdomen Abdomen: soft, tender (mild suparpubic tenderness ) - Neurologic normal coordination, normal sensation - Musculoskeletal normal gait, normal posture - Psychiatric oriented to time, oriented to person, oriented to place Results - Labs 02/06/19 12:09 02/06/19 12:09 Microbiology - Last 24 Hours (Table) 02/06/19 12:09 Urine Culture - Preliminary Urine,Voided Gram Neg Bacilli - Imaging CT scan - abdomen: other (5 mm right sided UVJ stone) Assessment and Plan Assessment: Ms. Valentine is a 33-year-old female that presents with a right-sided ureteral stone, she underwent a CT that showed a 5 mm right UVJ stone. She also had a UTI on presentation and has complained of fevers at home. She was hemodynamically stable without leukocytosis in the ED. Given her UTI and a right-sided ureteral stone decision was made to take patient to the OR Plan: -Continue Cefrixone for UTI and f/u on urine culture -OR for cystoscopy and right sided ureteral stent placement
[2019-02-07] MEDS ORDERED: IV FLUID CONTINUATION 400 ML IV ONE (15:20)
[2019-02-07] MEDS ORDERED: LIDOCAINE 1% INJ 10MG/ML (20 ML MDV) ONE (16:08)
[2019-02-07] MEDS ORDERED: SUCCINYLCHOLINE CHLORIDE 100 MG/5 ML SYR IV ONE (16:08)
[2019-02-07] MEDS ORDERED: PROPOFOL 10 MG/ML 20 ML VIAL IV ONE (16:08)
[2019-02-07] MEDS ORDERED: MIDAZOLAM 2 MG/2 ML VIAL ONE (16:08)
[2019-02-07] MEDS ORDERED: DEXAMETHASONE SOD PHOS (MDV) 100 MG/10 ML VIAL ONE (16:08)
[2019-02-07] MEDS ORDERED: ONDANSETRON 4 MG/2 ML VIAL ONE (16:08)
[2019-02-07] MEDS ORDERED: fentaNYL (PF) 50 MCG/ML 2 ML AMP ONE (16:08)
[2019-02-07] MEDS ORDERED: LACTATED RINGERS 1,000 ML IV ONE (16:21)
[2019-02-07] MEDS ORDERED: SODIUM CHLORIDE 0.9% IV ONE ×2 (16:26)
[2019-02-07] MEDS ORDERED: GENTAMICIN IV ONE ×2 (16:26)
--- NOTE | 2019-02-07 17:04 | P.OP ---
Date of Procedure: 02/07/19 Preoperative Diagnosis: Right sided ureteral stone/UTI Postoperative Diagnosis: Same Procedure(s) Performed: Cystoscopy and right sided ureteral stent placement Implants: 6Fr X 24 cm stent Anesthesia: GISELLE Surgeon: Silvio Solis Estimated Blood Loss (ml): 5 Condition: stable Disposition: floor Indications for Procedure: Ms Valentine is 33 yo female with hx of right sided distal ureteral stone. She presented to the ED with UTI, subjective fever. CT was obtained which showed 5mm stone in the distal ureter. We discussed with her given her obstructive stone and UTI we recommend that she undergo ureteral stent placement. I discussed with her the risk of the procedure including bleeding infection and injury to the ureter. I explained to her that the stent is a temporary measure to help with her infection, and it will not assist with stone passage. I discussed with her that the stent will eventually need to be removed and we have to remove the stone and on a future date. She understood all the risk and agree to proceed with surgery Description of Procedure: The patient was brought into the operating room general anesthesia was induced. She was placed in dorsal lithotomy position and prepped and draped in sterile fashion. A cystoscope fitted with a 22 sheath was inserted per urethra, cystoscopy was performed which showed no suspicous lesions within the bladder but there was evidence of cystitis. The right ureteral orifice was identified and a 0.035 sensor wire was advanced up the right ureter into the renal pelvis. Next a 6 Fr X 24 cm ureteral stent was advanced over the wire. A proximal curl was visualized under fluoroscopy and the distal curl was visualized under cystoscopy. The bladder was emptied at the end of the case, the patient tolerated the procedure well and was taken to PACU in stable condition
--- NOTE | 2019-02-07 17:06 | FL ---
EXAMINATION TYPE: FL guidance operating room DATE OF EXAM: 02/07/2019 FLUOROSCOPY Fluoroscopy time of 1 seconds was used during stent placement. 1 image/s document/s the procedure.
[2019-02-08] MEDS: HYDROcodone/APAP 5-325MG 1 EACH TAB PO PRN (03:11)
[2019-02-08] MEDS: SODIUM CHLORIDE 0.9% 1,000 ML IV SCH (05:55)
[2019-02-08 09:01] VITALS: BP 98/64; PULSE 65; RESP 12; TEMP 98.2
--- NOTE | 2019-02-08 12:29 | P.PN ---
Subjective Progress Note Date: 02/08/19 Principal diagnosis: Ureteral stone POD#1 S/P right ureteral stent placement, no acute overnight event pain controlled tolerating a diet. Objective - Vital Signs Vital signs: Vital Signs Temp 98.2 F 02/08/19 08:20 Pulse 65 02/08/19 08:20 Resp 12 02/08/19 08:20 BP 98/64 02/08/19 08:20 Pulse Ox 97 02/08/19 08:20 Intake & Output 02/07/19 02/08/19 02/08/19 18:59 06:59 18:59 Intake Total 423.75 400 Output Total 300 Balance 123.75 400 Intake: IV 303.75 Oral 120 400 Output: Urine 300 Estimated Blood Loss 0 Other: Voiding Method Toilet Toilet Toilet # Voids 1 1 - Constitutional General appearance: Present: cooperative, no acute distress - Respiratory Respiratory: negative: prolonged expiration, prolonged inspiration - Gastrointestinal General gastrointestinal: Present: soft. Absent: distended - Psychiatric Psychiatric: Present: A&O x's 3 - Labs CBC & Chem 7: 02/06/19 12:09 02/06/19 12:09 Labs: Microbiology - Last 24 Hours (Table) 02/06/19 12:09 Urine Culture - Final Urine,Voided Escherichia coli Assessment and Plan Assessment: Ms. Valentine is a 33-year-old female that presents with a right-sided ureteral stone, she underwent a CT that showed a 5 mm right UVJ stone. She also had a UTI on presentation and has complained of fevers at home. She was hemodynamically stable without leukocytosis in the ED. Underwent Stent shun cement on 02/07/19 Plan: -Discharge home today with Keflex for 10 days -F/U next week to discuss definitive stone management
--- NOTE | 2019-02-08 12:34 | P.DS ---
Providers Date of admission: 02/07/19 13:17 02/06/19 Attending physician: Silvio Solis MD [facility]: 33 yo female with hx of 5 mm distal ureteral stone. Patient was admitted to the hospital due to UTI and subjective fevers at home. Given patient patient was admitted to the hospital given her UTI and ureteral stone. She underwent right ureteral stent placement on 02/07. Please see op noted dated 02/07 for surgery detail. She had an uneventful post operative course and remaind afebrile. She was discharged home on POD #1. At time of discharge she was tolerating diet, ambulating and pain controlled. Patient Condition at Discharge: Fair Plan - Discharge Summary Discharge Rx Participant: Yes New Discharge Prescriptions: New RX: Ibuprofen 600 mg PO Q8HR PRN #30 tablet PRN Reason: Pain Cephalexin [Keflex] 500 mg PO Q8HR #30 cap No Action Ibuprofen [Motrin Ib] 400 mg PO Q6H PRN PRN Reason: Pain Discharge Medication List Ibuprofen [Motrin Ib] 400 mg PO Q6H PRN 02/06/19 [History] Cephalexin [Keflex] 500 mg PO Q8HR #30 cap 02/08/19 [Rx] RX: Ibuprofen 600 mg PO Q8HR PRN #30 tablet 02/08/19 [Rx] Follow up Appointment(s)/Referral(s): Austin Flores MD [Primary Care Provider] - 1-2 days Silvio Solis MD [STAFF PHYSICIAN] - 1 Week Patient Instructions/Handouts: Lithotripsy (GEN) Activity/Diet/Wound Care/Special Instructions: You may see some blood in the urine Drink plenty of fluid
--- NOTE | 2019-02-11 06:24 | CDI ---
Documentation Clarification Form Date: 02/11/19 From: Yoshi Natahn Phone: If you have a question about this query, please contact Magalis Smith, Penology Professor at [phone] between 8am and 5pm. Admit Date: 02/07/19 Discharge Date: 02/08/19 Patient Name: Ana Luisa Valentine Visit Number: [id number] ATTENTION: The Clinical Documentation Specialists (CDI) and [facility] Coding Staff appreciate your assistance in clarifying documentation. Please respond to the clarification below the line at the bottom and electronically sign. The CDI & [facility] Coding staff will review the response and follow-up if needed. Please note: Queries are made part of the Legal Health Record. If you have any questions, please contact the author of this message via ITS. Dear Silvio Short, The patient presented with Right ureter calculus and Urinary tract infection underwent stent placement. History/Risk Factors: kidney stones, uti Lab findings:Urine,Voided Escherichia coli Radiology findings:CONTINUING MODERATE TO SEVERE HYDRONEPHROSIS ON THE RIGHT WITH A PERSISTENT 5.3 MM CALCULUS JUST PROXIMAL TO THE RIGHT UVJ.THERE IS INCREASED STRANDING ABOUT THE RIGHT KIDNEY. Treatment: Underwent stent placement. Under CT abdomen only documented "right sided severe hydronephrosis" In your professional opinion, can you please clarify Hydronephrosis Presence? YES NO Other, please specify Unable to determine Hydronephrosis is secondary to obstruction from her kidney stone MTDD
== END 2019-02-08 15:51 | disposition home or self-care (01) | DRG 661 ==
LOC: EC 11:17 → 3NMEDONC 15:16 → 6PED 02-07 10:30 → OBSVTOIN 02-07 13:17
PROVIDERS: ADMIT Urology; ATTEND Urology
PROC: 0T768DZ Dilation of Right Ureter with Intraluminal Device, Via Natural or Artificial Opening Endoscopic (ICD-10-PCS; principal; 2019-02-07 12:50)
DX: N13.6 Pyonephrosis (principal); B96.20 Unspecified Escherichia coli [E. coli] as the cause of diseases classified elsewhere; Z87.442 Personal history of urinary calculi; Z87.440 Personal history of urinary (tract) infections
CPT/HCPCS: 36415; 74018; 74176; 80053; 81001; 81025; 82150; 83605; 83690; 85025; 87077; 87086; 87186; 87324; 96361; 96374; 96375; 99285

== ENCOUNTER → 2019-03-31 | Outpatient (CLI) | payer SELFPAY ==
--- NOTE | 2019-03-31 16:30 | XR ---
EXAMINATION TYPE: XR KUB DATE OF EXAM: 03/31/2019 CLINICAL DATA: 33-year-old female right renal colic, calculus of kidney, [facility] COMPARISON: 02/06/2019 FINDINGS: An IUD is present. Additional right ureteral stent. No definite suspicious calcification along the co urse of the right ureteral stent. Nonobstructive bowel gas pattern. Mild stool in the right side of the abdomen. IMPRESSION: Right ureteral stent. No definite suspicious calcification is radiographically apparent.
== END | disposition home or self-care (01) ==
LOC: RADXRMAIN 15:29
PROVIDERS: ATTEND Urology
DX: N20.0 Calculus of kidney (principal); Z96.0 Presence of urogenital implants
CPT/HCPCS: 74018